=== PATIENT | female | born 2005 ===

== ENCOUNTER 2024-11-09 18:39 | Emergency (ER) | payer SELFPAY ==
[2024-11-09 18:40] VITALS: BMI 29.2
--- NOTE | 2024-11-09 19:00 | PC.LAC ---
NO ANSWER IN LOBBY WHEN CALLED FOR VITAL SIGNS
--- NOTE | 2024-11-09 20:31 | PD.EDADDENDU ---
Emergency Room Addendum Addendum Narrative: Patient left before being seen. Samson Purcell MD
== END 2024-11-09 20:13 | disposition left against medical advice (07) ==
PROVIDERS: Emergency Provider Emergency Medicine
DX: Z53.21 Procedure and treatment not carried out due to patient leaving prior to being seen by health care provider (principal)
CPT/HCPCS: 99281